=== PATIENT | male | born 1975 | race Caucasian/White ===

== ENCOUNTER 2023-07-26 07:58 | Outpatient (REF) | payer SELFPAY | END 2023-07-26 07:59 | disposition home or self-care (01) | LOC: NFLDREF 07:58 | PROVIDERS: PCP Family Medicine; Referring Provider Family Medicine; Visit Provider Family Medicine | DX: Z00.00 Encounter for general adult medical examination without abnormal findings (principal); Z12.5 Encounter for screening for malignant neoplasm of prostate; Z13.6 Encounter for screening for cardiovascular disorders | CPT/HCPCS: 80048; 80061; 84153 ==

== ENCOUNTER 2023-08-19 06:23 | Outpatient (CLI) | payer BC, SELFPAY ==
--- NOTE | 2023-08-19 08:03 | W.ANESCHARGE ---
Anesthesia Charges Start Date/Time Anesthesia Start Date: 08/19/23 Anesthesia Start Time: 07:23 Stop Date/Time Anesthesia Stop Date: 08/19/23 Anesthesia Stop Time: 08:01
== END 2023-08-19 06:24 | disposition home or self-care (01) ==
LOC: OP CLINIC 06:24
PROVIDERS: PCP Family Medicine; Visit Provider Surgery
DX: Z12.11 Encounter for screening for malignant neoplasm of colon (principal); K63.5 Polyp of colon; K62.1 Rectal polyp; K64.4 Residual hemorrhoidal skin tags; K57.30 Diverticulosis of large intestine without perforation or abscess without bleeding
CPT/HCPCS: 45385; 811; 88305; J2704

== ENCOUNTER 2025-02-01 13:51 | Outpatient (CLI) | payer BC, SELFPAY | END 2025-02-01 13:52 | disposition home or self-care (01) | PROVIDERS: PCP Family Medicine; Visit Provider Family Medicine | DX: R10.11 Right upper quadrant pain (principal); Z12.5 Encounter for screening for malignant neoplasm of prostate; Z11.59 Encounter for screening for other viral diseases | CPT/HCPCS: 80053; 86803; G0103 ==

== ENCOUNTER 2025-02-08 07:58 | Outpatient (CLI) | payer BC, SELFPAY ==
--- NOTE | 2025-02-08 08:15 | CRLHL7_ITS ---
For Patients: As a result of the Century Cures Act, medical imaging exams and procedure reports are released immediately into your electronic medical record. You may view this report before your referring provider. If you have questions, please contact your health care provider. INDICATION: Right-sided abdominal pain COMPARISON: none TECHNIQUE: Real time dias scale imaging and color Doppler analysis was performed of the right upper quadrant. FINDINGS: The patient`s liver is of normal size and has uniform echogenicity. There is a normal appearance of the hepatic IVC and visualized proximal abdominal aorta. There is no evidence of ascites. The gallbladder is of normal size and there is no evidence of intraluminal stones or sludge. The gallbladder wall measures 1 mm in thickness. The common bile duct is of normal size and measures 3.2 mm in diameter at the level of the estela hepatis. The pancreas is not well visualized. There is no evidence of a stone or hydronephrosis within the right kidney. The right kidney measures 10.6 cm in length. IMPRESSION: Unremarkable abdominal ultrasound of the right upper quadrant. Dictated by Amandeep Pabon MD @ 02/08/2025 2:45:51 PM (Electronically Signed)
== END 2025-02-08 07:59 | disposition home or self-care (01) ==
LOC: US 07:59
PROVIDERS: PCP Family Medicine; Visit Provider Family Medicine
DX: R10.9 Unspecified abdominal pain (principal)
CPT/HCPCS: 76705

== ENCOUNTER 2025-02-23 13:09 | Outpatient (CLI) | payer BC, SELFPAY ==
--- NOTE | 2025-02-23 13:30 | CRLHL7_ITS ---
For Patients: As a result of the Century Cures Act, medical imaging exams and procedure reports are released immediately into your electronic medical record. You may view this report before your referring provider. If you have questions, please contact your health care provider. INDICATION: Abdominal pain TECHNIQUE: 7.4 mCi Tc-99m Mebrofenin was injected intravenously. Images of the liver, gallbladder and abdomen were obtained for 40 minutes. CCK was then administered and imaging continued for an additional 30 minutes. COMPARISON: Ultrasound 02/08/2025 FINDINGS: There is good uptake of activity by the hepatocytes. There is visualization of the biliary tree, gallbladder and small bowel. In response to 1.9 mcg Kinevac administration, there is a normal gallbladder ejection fraction of 63 percent. IMPRESSION: 1. Normal study. There is no evidence of acute or chronic cholecystitis. 2. Normal gallbladder ejection fraction of 63 percent. Dictated by Amandeep Pabon MD @ 02/24/2025 9:30:41 AM (Electronically Signed)
== END 2025-02-23 13:10 | disposition home or self-care (01) ==
LOC: NM 13:10
PROVIDERS: PCP Family Medicine; Visit Provider Family Medicine
DX: R10.9 Unspecified abdominal pain (principal)
CPT/HCPCS: 78227; A9537; J2805

== ENCOUNTER 2025-03-11 11:41 | Outpatient (CLI) | payer BC, SELFPAY | END 2025-03-11 11:42 | disposition home or self-care (01) | LOC: NFLDREF 03-15 16:41 | PROVIDERS: PCP Family Medicine; Referring Provider Family Medicine; Visit Provider Family Medicine | DX: Z13.29 Encounter for screening for other suspected endocrine disorder (principal); R10.11 Right upper quadrant pain | CPT/HCPCS: 84436; 84443; 84481 ==